=== PATIENT | male | born 1985 | race Two or more races ===

== ENCOUNTER → 2017-11-10 | Outpatient (CLI) | payer OTHER | END | disposition home or self-care (01) | LOC: SPEC 11:05 → EEVIPCON 11:05 | PROVIDERS: ATTEND Nurse Practitioner Family | DX: Z00.01 Encounter for general adult medical examination with abnormal findings (principal); Z86.711 Personal history of pulmonary embolism | CPT/HCPCS: 36415; 85610 ==

== ENCOUNTER → 2017-12-08 | Outpatient (CLI) | payer OTHER | END | disposition home or self-care (01) | LOC: EEVIPCON 08:21 → SPEC 08:21 | PROVIDERS: ATTEND Nurse Practitioner Family | DX: Z00.01 Encounter for general adult medical examination with abnormal findings (principal); Z86.711 Personal history of pulmonary embolism | CPT/HCPCS: 36415; 85610 ==

== ENCOUNTER → 2018-01-05 | Outpatient (CLI) | payer OTHER | END | disposition home or self-care (01) | LOC: SPEC 10:30 → EEVIPCON 10:30 | PROVIDERS: ATTEND Nurse Practitioner Family | DX: Z51.81 Encounter for therapeutic drug level monitoring (principal); Z79.01 Long term (current) use of anticoagulants; Z86.711 Personal history of pulmonary embolism | CPT/HCPCS: 36415; 85610 ==

== ENCOUNTER → 2018-02-09 | Outpatient (CLI) | payer OTHER | END | disposition home or self-care (01) | LOC: SPEC 10:05 | PROVIDERS: ATTEND Nurse Practitioner Family | DX: Z51.81 Encounter for therapeutic drug level monitoring (principal); Z86.711 Personal history of pulmonary embolism; Z79.01 Long term (current) use of anticoagulants | CPT/HCPCS: 36415; 85610 ==

== ENCOUNTER → 2018-03-10 | Outpatient (CLI) | payer OTHER | END | disposition home or self-care (01) | LOC: EEVIPCON 13:20 → SPEC 13:20 | PROVIDERS: ATTEND Nurse Practitioner Family | DX: Z86.711 Personal history of pulmonary embolism (principal) | CPT/HCPCS: 36415; 85610 ==

== ENCOUNTER → 2018-04-06 | Outpatient (CLI) | payer OTHER | END | disposition home or self-care (01) | LOC: SPEC 08:28 | PROVIDERS: ATTEND Nurse Practitioner Family | DX: Z53.9 Procedure and treatment not carried out, unspecified reason (principal); Z86.11 Personal history of tuberculosis | CPT/HCPCS: 36415 ==

== ENCOUNTER → 2018-05-11 | Outpatient (CLI) | payer OTHER | END | disposition home or self-care (01) | LOC: SPEC 01:35 | PROVIDERS: ATTEND Nurse Practitioner Family | DX: Z51.81 Encounter for therapeutic drug level monitoring (principal); Z86.11 Personal history of tuberculosis | CPT/HCPCS: 36415; 85610 ==

== ENCOUNTER → 2018-06-08 | Outpatient (CLI) | payer OTHER | END | disposition home or self-care (01) | LOC: SPEC 08:53 → EEVIPCON 08:53 | PROVIDERS: ATTEND Nurse Practitioner Family | DX: Z86.711 Personal history of pulmonary embolism (principal) | CPT/HCPCS: 36415; 85610 ==

== ENCOUNTER → 2018-07-13 | Outpatient (CLI) | payer OTHER | END | disposition home or self-care (01) | LOC: EEVIPCON 08:14 → SPEC 08:14 | PROVIDERS: ATTEND Nurse Practitioner Family | DX: Z86.711 Personal history of pulmonary embolism (principal) | CPT/HCPCS: 36415; 85610 ==

== ENCOUNTER → 2018-09-07 | Outpatient (CLI) | payer OTHER | END | disposition home or self-care (01) | LOC: SPEC 09:13 → EEVIPCON 09:13 | PROVIDERS: ATTEND Nurse Practitioner Family | DX: Z86.711 Personal history of pulmonary embolism (principal) | CPT/HCPCS: 36415; 85610 ==

== ENCOUNTER → 2018-10-05 | Outpatient (CLI) | payer OTHER | END | disposition home or self-care (01) | LOC: SPEC 09:35 → EEVIPCON 09:35 | PROVIDERS: ATTEND Nurse Practitioner Family | DX: Z86.711 Personal history of pulmonary embolism (principal) | CPT/HCPCS: 36415; 85610 ==

== ENCOUNTER → 2018-11-09 | Outpatient (CLI) | payer OTHER | END | disposition home or self-care (01) | LOC: EEVIPCON 10:14 → SPEC 10:14 | PROVIDERS: ATTEND Nurse Practitioner Family | DX: Z86.711 Personal history of pulmonary embolism (principal) | CPT/HCPCS: 36415; 85610 ==

== ENCOUNTER → 2019-01-04 | Outpatient (CLI) | payer OTHER | END | disposition home or self-care (01) | LOC: EEVIPCON 10:06 → SPEC 10:06 | PROVIDERS: ATTEND Nurse Practitioner Family | DX: Z86.711 Personal history of pulmonary embolism (principal) | CPT/HCPCS: 36415; 85610 ==